=== PATIENT | female | born 1955 | race Two or more races ===

== ENCOUNTER 2020-06-24 10:08 | Inpatient (IN) | payer BC, OTHER ==
[~2020-06-24] VITALS: Ht 160 cm; Wt 92.7 kg
[~2020-06-24 10:08] MED LIST: ALBUAER3 IN; AMLO-489 PO; BUSP30TA21 PO; DIPH25CA6 PO; GABA300C10 PO; LISI-707 PO; METH750T3 PO; OXYC-963 PO; SENN1TAB14 PO; SERT-377 PO; TRAZ100T3 PO
[2020-06-24] MEDS ORDERED: ROPIVACAINE 0.5% (5MG/ML) 20ML AMPULE IJ ONE (11:35)
[2020-06-24] MEDS ORDERED: BUPIVACAINE 0.25% INJ 50ML VIAL ONE (11:52)
[2020-06-24] MEDS ORDERED: TRANEXAMIC ACID 10 ML ONE ×2 (11:52→13:13)
[2020-06-24] MEDS ORDERED: MORPHINE SULF(PF) 0.5MG/ML 10ML VIAL ONE (11:55)
[2020-06-24] MEDS ORDERED: KETOROLAC TROMETH 30 MG/ML 1ML VIAL ONE (11:55)
[2020-06-24] MEDS ORDERED: FAMOTIDINE (10MG/ML) 2ML VL IV ONE (12:11)
[2020-06-24] MEDS ORDERED: SUCCINYLCHOLINE CHLORIDE 20 MG/ML 10ML VIAL IV ONE (12:14)
[2020-06-24] MEDS ORDERED: MIDAZOLAM HCL 1MG/1ML-2 ML VIAL ONE (12:16)
[2020-06-24] MEDS ORDERED: GLYCOPYRROLATE 0.2 MG/ML 1ML VIAL ONE (12:16)
[2020-06-24] MEDS ORDERED: ONDANSETRON HCL 4 MG/2 ML VIAL ONE (12:16)
[2020-06-24] MEDS ORDERED: LIDOCAINE 2% (LOCAL ANESTH.) PF 5ml SDV ONE (12:16)
[2020-06-24] MEDS ORDERED: fentaNYL CITRATE 100 MCG/2 ML VL ONE (12:16)
[2020-06-24] MEDS ORDERED: PROPOFOL 10 MG/ML 20 ML IV ONE (12:16)
[2020-06-24] MEDS ORDERED: HYDROmorphone HCL 2 MG/ML VL ONE (12:16)
[2020-06-24] MEDS ORDERED: DexAMETHasone SOD PHOS 10MG/1ML VIAL INJ ONE (12:16)
[2020-06-24] MEDS ORDERED: MEPERIDINE HCL (50 MG/ML) 1 ML VIAL ONE (14:53)
[2020-06-24] MEDS: VANCOMYCIN HCL 1000 MG VL ONE ×2 (15:00→18:37)
[2020-06-24] MEDS ORDERED: HYDROcodone-ACET 10/325MG TAB PO PRN (15:30)
[2020-06-24] MEDS ORDERED: NITROGLYCERIN 0.4 MG SL TAB SL PRN (15:30)
[2020-06-24] MEDS ORDERED: MORPHINE SULF INJ 2 MG/ML SYRINGE 1ML IV PRN (15:30)
[2020-06-24] MEDS ORDERED: ONDANSETRON HCL 4 MG/2 ML VIAL IV PRN (15:45)
[2020-06-24] MEDS ORDERED: IPRATROPIUM BROM 0.5 MG/2.5ML INH SOL NEB ONE (15:45)
[2020-06-24] MEDS ORDERED: ALBUTEROL SULF 2.5 MG/0.5ML(0.5%) NEB SOLN NEB ONE (15:45)
[2020-06-24] MEDS ORDERED: HYDROmorphone HCL 2 MG/ML VL IV PRN (15:45)
[2020-06-24] MEDS ORDERED: ASPI-498 OR (16:10)
[2020-06-24 17:14] VITALS: BP 103/64
[2020-06-24] MEDS: ceFAZolin 1GM/50ML 50 ML IV SCH ×2 (18:26→23:43)
[2020-06-24] MEDS: MORPHINE SULF INJ 2 MG/ML SYRINGE 1ML IV PRN ×2 (18:27→23:44)
[2020-06-24] MEDS ORDERED: SENNA 8.6 MG TAB PO PRN (18:30)
[2020-06-24] MEDS ORDERED: ALBUTEROL SULF HFA 90MCG INH 200DOSE IN SCH (18:30)
[2020-06-24] MEDS ORDERED: busPIRone HCL 10 MG TAB PO PRN (18:30)
[2020-06-24] MEDS ORDERED: METHOCARBAMOL 500 MG TAB PO PRN (18:30)
[2020-06-24] MEDS: LACTATED RINGER'S 1,000 ML IV SCH (18:38)
[2020-06-24 22:00] VITALS: BP 109/63
[2020-06-24] MEDS ORDERED: traZODone HCL 50 MG TAB PO SCH (22:00)
[2020-06-24] MEDS: ASPirin 81 mg TAB PO SCH (23:41)
[2020-06-24] MEDS: GABAPENTIN 300 MG CAP PO SCH (23:42)
[2020-06-24] MEDS: ONDANSETRON HCL 4 MG/2 ML VIAL IV PRN (23:45)
[2020-06-25] MEDS: LACTATED RINGER'S 1,000 ML IV SCH ×2 (01:30→11:30)
[2020-06-25] MEDS: GABAPENTIN 300 MG CAP PO SCH ×2 (04:59→13:09)
[2020-06-25 05:00] VITALS: BP 106/61
[2020-06-25] MEDS: ONDANSETRON HCL 4 MG/2 ML VIAL IV PRN (05:48)
[2020-06-25] MEDS: MORPHINE SULF INJ 2 MG/ML SYRINGE 1ML IV PRN ×2 (05:48→10:19)
[2020-06-25 06:04] LABS: Basophils # (auto) 0 10 ^3/uL (0-0.2); Basophils % (auto) 0.4 % (0.0-2.0); Eosinophils # (auto) 0 10 ^3/uL (0-0.8); Eosinophils % (auto) 0.1 % (0.0-7.0); Hematocrit 26.2 % (36.0-46.0); Hemoglobin 9.1 g/dL (12.2-16.2); Lymphocytes # (auto) 1.6 10 ^3/uL (0.4-5.4); Mean Corpuscular Hemoglobin 29.6 pg (28.0-32.0); Mean Corpuscular Hgb Conc. 34.8 g/dL (32.0-36.0); Mean Corpuscular Volume 85.1 fL (80.0-100.0); Monocytes # (auto) 0.8 10 ^3/uL (0-1.3); Monocytes % (auto) 10.7 % (0.0-12.0); Neutrophils # (auto) 4.9 10 ^3/uL (1.6-8.6); Neutrophils % (auto) 66.8 % (37.0-80.0); Platelet Count (auto) 208 10^3/uL (140-450); Red Blood Cells 3.07 10^6/uL (4.0-5.20); Red Cell Distribution Width 14.6 % (11.8-14.3); White Blood Cell 7.3 10^3/uL (4.4-10.8)
[2020-06-25 06:31] LABS: Calcium 8.3 mg/dL (8.5-10.1)
[2020-06-25 08:33] VITALS: BP 96/56
[2020-06-25] MEDS: ceFAZolin 1GM/50ML 50 ML IV SCH (09:01)
[2020-06-25] MEDS ORDERED: PATIENTS OWN MEDICATION (Lisinopril & Hydrochlorothiazi (Zestoretic 20-25 mg) 1 TAB) PO SCH (10:00)
[2020-06-25] MEDS ORDERED: HCTZ 25 MG TAB PO SCH (10:00)
[2020-06-25] MEDS ORDERED: SERTRALINE HCL 50 MG TAB PO SCH (10:00)
[2020-06-25] MEDS ORDERED: LISINOPRIL 20 MG TAB PO SCH (10:00)
[2020-06-25] MEDS ORDERED: amLODIPine BESYLATE 5 MG TAB PO SCH (10:00)
[2020-06-25] MEDS ORDERED: PERCOT PO (10:12)
[2020-06-25] MEDS ORDERED: SENN-62 PO (10:12)
[2020-06-25] MEDS: ASPirin 81 mg TAB PO SCH (10:19)
[2020-06-25 12:33] VITALS: BP 112/70
[2020-06-25 14:40] VITALS: BP 122/71
== END 2020-06-25 16:12 | disposition home or self-care (01) | DRG 483 ==
LOC: SUR 10:08 → WEST WING 17:00
PROVIDERS: ADMIT Orthopaedic Surgery Sports Medicine; ATTEND Orthopaedic Surgery Sports Medicine
PROC: 0RRJ00Z Replacement of Right Shoulder Joint with Reverse Ball and Socket Synthetic Substitute, Open Approach (ICD-10-PCS; principal; 2020-06-24 12:14)
DX: M12.811 Other specific arthropathies, not elsewhere classified, right shoulder (principal); G89.4 Chronic pain syndrome; I11.9 Hypertensive heart disease without heart failure; Z20.822 Contact with and (suspected) exposure to COVID-19
CPT/HCPCS: 36415; 73020; 80048; 85025; 86850; 86900; 86901; G0378; J0330; J0690; J1100; J1885; J2001; J2250; J2405; J2704; J3490

== ENCOUNTER 2022-08-23 09:29 | Emergency (ER) | payer OTHER ==
[~2022-08-23] VITALS: Ht 154.9 cm; Wt 69.5 kg
[~2022-08-23 09:29] MED LIST changes: +ASPI-498 OR; +DIPH25CA29 PO; -DIPH25CA6 PO; -LISI-707 PO; +METH750T22 PO; -METH750T3 PO; +SENN-62 PO
[2022-08-23 11:37] VITALS: BP 157/82
[2022-08-23] MEDS ORDERED: HYDROcodone-ACET 5/325MG TAB PO ONE (12:15)
[2022-08-23] MEDS ORDERED: LIDOCAINE W/ EPINEPHRINE 2% INJ 20ML VIAL ONE (12:41)
[2022-08-23] MEDS ORDERED: DexAMETHasone SOD PHOS 4 MG/1ML SDV INJ ONE (12:41)
[2022-08-23] MEDS ORDERED: LIDOCAINE 2%HCL (LOCAL ANESTH.) INJ 10ml MDV ONE (13:34)
[2022-08-23] MEDS ORDERED: HYDR-4902 PO (14:16)
== END 2022-08-23 14:24 | disposition home or self-care (01) ==
LOC: ER 09:29
DX: S93.121A Dislocation of metatarsophalangeal joint of right great toe, initial encounter (principal); S92.401A Displaced unspecified fracture of right great toe, initial encounter for closed fracture; I10 Essential (primary) hypertension; J45.909 Unspecified asthma, uncomplicated; Z90.710 Acquired absence of both cervix and uterus; Z79.82 Long term (current) use of aspirin; Z79.899 Other long term (current) drug therapy; W20.8XXA Other cause of strike by thrown, projected or falling object, initial encounter; Y93.89 Activity, other specified; Y92.89 Other specified places as the place of occurrence of the external cause; Y99.8 Other external cause status
CPT/HCPCS: 29515; 73630; 99283; J2001; J1100